=== PATIENT | female | born 1975 | race Caucasian/White ===

== ENCOUNTER → 2019-07-10 09:36 | Outpatient (CLI) | payer BC, SELFPAY | PROVIDERS: PCP Family Medicine; Visit Provider Family Medicine | DX: Z01.84 Encounter for antibody response examination (principal) | CPT/HCPCS: 36415; 86735; 86762; 86765 ==

== ENCOUNTER 2019-08-14 09:19 | Day surgery (SDC) | payer BC, SELFPAY ==
[2019-08-08 11:38] VITALS: BMI 34.3
[2019-08-14] VITALS (10 sets, daily range): BP systolic 107–127; BP diastolic 70–86; PULSE 69–108; RESP 10–19; TEMP 36.4–37.1; O2SAT 98–100; BMI 34.3
--- NOTE | 2019-08-14 | PATH_ITS ---
[facility] Accession Number: [id number] . 01 Material submitted: . hemorrhoids - HEMORRHOID . 02 Diagnosis: Hemorrhoid, Excision: Benign hemorrhoid tissue. No evidence of neoplasm. MRV 08/16/2019 1033 Local . 02 Electronically signed: . Luigi Camacho MD, PhD, Pathologist NPI- [id number] . 01 Gross description: . Specimen is received in a formalin-filled container, labeled hemorrhoid, and consists of two unoriented soft tissues, 0.8 cm up to 2.2 cm, which has a combined weight of 1.0 grams. The tissues are surfaced by seth, wrinkled, diffusely raised skin, and the opposing surface is diffusely cauterized. The cauterized bases are inked blue and sectioning reveals pink-seth edematous, otherwise grossly unremarkable cut surfaces. Forensic Ballistics Expert sections, including blue-inked base are submitted in A1. ([id number]) /MRV 08/15/2019 1004 Local . 02 Pathologist provided ICD-10: K64.9 . 02 CPT . 149350 Performed at: 01 [facility] [address], [place], [place] [id number] MD Jonathon Armstrong MD Phone: [phone] Performed at: 02 [facility] [address] [place], [place] [id number] MD Valeri Vera MD Phone: [phone]
--- NOTE | 2019-08-14 10:29 | PM.HP.1 ---
History of Present Illness History of Present Illness Date Patient Seen: 08/14/19 Time Patient Seen: 10:29 Chief complaint: 36104 Narrative: This is a 44-year-old woman with a history of obesity, four pregnancies, two C sections, constipation associated with , and a hemorrhoidal flare up due to constipation and straining around the time of the of her 2nd child. Since that time her constipation has been well controlled, however she has remnant flaps left over from the swelling of her external hemorrhoids. These are difficult to keep clean and cause her distress and discomfort. She denies any current problems of constipation. She occasionally sees a tiny amount of bleeding from the area. They occasionally become swollen. She does not use a bowel regimen or any topical treatments. She has never had a colonoscopy. She denies any family history of colon cancer. ROS: A 13 system review was negative other than as mentioned in the HPI. PE: GENERAL: Well groomed, alert, and cooperative. Answers questions promptly and appropriately. Vital signs noted. HENT: Normocephalic, atraumatic. Hearing intact. Oral mucosa is pink and moist. EYES: Conjunctiva pink, sclera white, no periorbital swelling. CARDIOVASCULAR: Regular rate. No pedal edema. RESPIRATORY: Normal respiratory rate, breathing comfortably on room air. GASTROINTESTINAL: Abdomen soft and non-distended Perianal: large external hemorrhoidal remnant tag at anterior midline anoderm; nontender; no blood or stool staining present JOSE: normal tone, no TTP, no masses; no blood, no stool in the vault GENITALURINARY: No flank tenderness. MUSCULOSKELETAL: Normal gait and coordination. Equal tone and mass bilaterally. EXTREMITIES: CMS intact, no pedal edema. SKIN: Warm, dry, soft, appropriate color for ethnicity. No other lesions, rashes, or wounds. NEURO: Alert and Oriented X 3. Good coordination. No ataxia, or sensory deficits, or cognitive issues. PSYCH: Appropriate affect and mood. Patient History Medical History External hemorrhoids (Acute) Internal hemorrhoids without complication (Acute) Surgical History History of foot surgery (Acute) Hx of wisdom tooth extraction (Acute ~02/1994) Status post delivery (03/25/11) Status post delivery (04/18/13) Family & Social History Family History Father Age: 74 Tachycardia Heart disease Graves disease Grandfather Heart disease Grandmother Age: 95 Heart disease Atrial fibrillation Hypertension Mother Age: 71 Breast cancer Graves disease Social History: household members spouse,children Tobacco & Substance use: Smoking Status Never smoker alcohol intake current Substance Use Type does not use Meds Home Medications and Allergies Home Medications Medication Instructions Recorded Confirmed Type No Known Home Medications 06/19/19 07/11/19 History Allergies Allergy/AdvReac Type Severity Reaction Status Date / Time No Known Allergies Allergy Uncoded 08/14/19 09:43 Exam Vital Signs (past 8 hours): - 08/14/19 09:44 Temperature 98.8 F Pulse Rate 69 Respiratory Rate 18 Blood Pressure 114/75 Pulse Oximetry 99 Oxygen Delivery Method Room Air Assessment & Plan Assessment and plan (1) External hemorrhoids: Current visit: No Status: Acute (2) Internal hemorrhoids without complication: Current visit: No Status: Acute Assessment & Plan narrative: 44 yo woman with symptomatic hemorrhoids. RIsks and benefits of hemorrhoidectomy were discussed including bleeding, infection, damage to nearby structures, need for additional procedures, risk of anal stenosis, leakage, prolonged recover, recurrent hemorrhoids, chronic pain, prolonged post operative pain. THe patient desires to proceed with surgery. Plan: Hemorrhoidectomy Time Spent With Patient Time with patient: 15-24 minutes
[2019-08-14] MEDS: LACTATED RINGERS 1,000 ML 42 ML IV (10:35)
[2019-08-14] MEDS: metroNIDAZOLE 500 MG/100 ML PIGGYBACK 100 MG IV ×2 (10:51→11:59)
[2019-08-14] MEDS: levoFLOXacin 500 MG/100 ML PIGGYBACK 100 MG IV (11:35)
--- NOTE | 2019-08-14 11:49 | SUR.OPER ---
Prone on padded OR bed, head in foam head support, gel chest rolls, gel pad under knees, pillow under lower legs, toes free of pressure, arms secured on padded arm boards at <90 degrees abduction. Safety belt at thigh.
[2019-08-14] MEDS: LIDOCAINE JELLY 2% 30 ML TOP (11:55)
[2019-08-14] MEDS: DIBUCAINE 1% OINT 28 GM 1 APPLIC TOP (11:56)
[2019-08-14] MEDS: BUPIVACAINE LIPOSOME 266 MG/20 ML VIAL INJ (11:57)
[2019-08-14] MEDS: BUPIVACAINE 0.25% W/ EPI 30 ML VIAL INJ (11:57)
--- NOTE | 2019-08-14 12:14 | PM.OP.1 ---
Operative Date/Time/Diagnoses Date of procedure: 08/14/19 Time of procedure: 12:14 Pre-op diagnosis: Hemorrhoids Post-op diagnosis: same Procedure & Clinicians Procedure: internal/external hemorrhoidectomy, one column; anorectal exam under anesthesia Same procedure as scheduled: Yes Indications: Hemorrhoids, anal discomfort and prolapse of anal tissue Surgeon: Jocelyne Acevedo Click Yes if Unassisted: Yes Anesthesia Type: General Operative Notes Findings: large redundant external and internal prolapsing hemorrhoid at anterior right hemorrhoidal column Specimen(s): other (hemorrhoid tissue) Estimated Blood Loss (mL): 1 Procedure in detail: The patient was brought into the OR and sequential compression devices were placed on both legs and turned on. General anesthesia was induced and the patient was intubated. She was turned prone on the OR bed and placed in jackknife position with all bony prominences padded. The perianal area was prepped and draped in sterile fashion, and appropriate perioperative antibiotics were given. Surgical time out was conducted. A four quadrant block was placed using 0.25% Marcaine with epi, 5mL's in each quadrant. An anorectal exam was then performed. The patient was found to have moderate circumferential external hemorrhoids with a large redundant hemorrhoid at the right anterior position, which is symptomatic. She was found to have grade 2 internal hemorrhoids without stigmata of recent bleeding. The large right anterior hemorrhoid was grasped with a debakey and it's base was injected with more local anesthetic. Cautery was used to open the mucosa and to divide the hemorrhoidal tissue and associated vessels at their base. Hemostasis was achieved with cautery, and the excised hemorrhoid was passed off the field. I then closed the mucosa and anoderm with a running 3-0 vicryl suture. 20mL of Exparel was injected in the surgical site, 2mL's per location. suture closed with 3-0 Vicryl Complications: none Post-operative Condition: stable Disposition: PACU
[2019-08-14] MEDS: BENZOCAINE/MENTHOL 1 LOZ PKT 1 EACH PO (12:37)
[2019-08-14] MEDS: ONDANSETRON 4 MG/2 ML INJ IV (12:50)
[2019-08-14] MEDS: hydrOXYzine 50 MG/ML INJ 25 MG IM (13:01)
[2019-08-14] MEDS: METOCLOPRAMIDE 10 MG/2 ML INJ IV (13:02)
--- NOTE | 2019-08-14 13:05 | SUR.PHASEI ---
Assumed care from Baljinder Garcia RN. Pt medicated with anti nausea meds and it resting comfortable at present.
--- NOTE | 2019-08-14 13:33 | SUR.PHASEI ---
Nausea gone, no c/o pain and refuses pain med at this time.
--- NOTE | 2019-08-14 13:54 | SUR.PHASEI ---
outcomes adequate for transfer.
--- NOTE | 2019-08-14 14:20 | SUR.PHASEII ---
Late entry: pt left when ready and left in stable condition. Steady when up and dressing to buttocks c/d/i.
== END 2019-08-14 13:50 | disposition home or self-care (01) ==
PROVIDERS: PCP Family Medicine; Visit Provider Surgery
PROC: (CPT 46255; principal; 2019-08-14 10:45)
DX: K64.8 Other hemorrhoids (principal); K64.4 Residual hemorrhoidal skin tags
CPT/HCPCS: 46255; C9290; J0330; J1100; J1885; J1956; J2250; J2405; J2704; J2765; J3010; J3410